=== PATIENT | male | born 1990 | race Two or more races ===

== ENCOUNTER 2023-04-26 22:13 | Emergency (ER) | payer OTHER ==
--- NOTE | 2023-04-26 22:45 | ED ---
General Adult HPI - General Source: patient, RN notes reviewed <Raissa Lazcano - Last Filed: 04/26/23 22:39> <Gustavo Grace - Last Filed: 04/27/23 20:02> - General Stated complaint: Hypertension Time Seen by Provider: 04/26/23 22:42 - History of Present Illness Initial comments: 32-year-old male presents to the emergency department for evaluation of hypertension. Patient states that he recently stopped drinking. Last drink was around 24 hours ago. Patient states that he has been drinking about a pint to a fifth of tequila daily for around 2 months. He went into his primary care provider for help today and he was sent to the emergency department. Denies history of DTs, withdrawal seizures. (Raissa Lazcano) 32-year-old male presenting with chief complaint of alcohol withdrawal. Patient normally drinks between a pint and a fifth of liquor per day. His last drink was 24 hours ago. He went to urgent care today and was noted to have hypertension, he was sent to the emergency department. He admits to "shakiness". Denies chest pain, difficulty breathing, abdominal pain and hallucinations, . No history of withdrawal seizures. (Gustavo Grace) - Related Data Previous Rx's Medication Instructions Recorded LORazepam [Ativan] 1 mg PO TID 3 Days #9 tab 04/27/23 Allergies Allergy/AdvReac Type Severity Reaction Status Date / Time No Known Allergies Allergy Verified 04/26/23 23:07 Review of Systems ROS Other: All systems not noted in ROS Statement are negative. <Raissa Lazcano - Last Filed: 04/26/23 22:39> ROS Other: All systems not noted in ROS Statement are negative. <Gustavo Grace - Last Filed: 04/27/23 20:02> ROS Statement: Those systems with pertinent positive or pertinent negative responses have been documented in the HPI. General Exam <Raissa Lazcano - Last Filed: 04/26/23 22:39> Limitations: no limitations General appearance: alert, in no apparent distress Head exam: Present: atraumatic, normocephalic Eye exam: Present: normal appearance Neck exam: Present: normal inspection Respiratory exam: Present: normal lung sounds bilaterally. Absent: respiratory distress, wheezes, rales, rhonchi, stridor Cardiovascular Exam: Present: normal rhythm, tachycardia, normal heart sounds. Absent: systolic murmur, diastolic murmur, rubs, gallop, clicks Neurological exam: Present: alert, oriented X3 Psychiatric exam: Present: normal affect, normal mood Skin exam: Present: warm, dry <Gustavo Grace - Last Filed: 04/27/23 20:02> - General Exam Comments Initial Comments: Visual Physical Exam Vital signs reviewed General: Well-appearing, nontoxic, no acute distress. Head: Normocephalic, atraumatic Eyes: PERRLA, EOMI ENT: Airway patent Chest: Nonlabored breathing Skin: No visual rash, normal skin tone Neuro: Alert and oriented 3 Musculoskeletal: No gross abnormalities (Raissa Lazcano) Course Vital Signs 04/26/23 04/27/23 04/27/23 23:08 00:11 01:17 Temperature 99.2 F Pulse Rate 128 H 85 93 Respiratory 18 20 20 Rate Blood Pressure 160/107 137/91 145/103 O2 Sat by Pulse 98 97 97 Oximetry 04/27/23 04/27/23 04:00 05:14 Temperature 98.2 F Pulse Rate 88 82 Respiratory 18 16 Rate Blood Pressure 122/73 116/74 O2 Sat by Pulse 98 98 Oximetry Medical Decision Making <Raissa Lazcano - Last Filed: 04/26/23 22:39> - Lab Data Result diagrams: 04/26/23 23:52 04/26/23 23:52 <Gustavo Grace - Last Filed: 04/27/23 20:02> - Medical Decision Making Quick note preformed by Raissa Lazcano PA-C (Raissa Lazcano) Was pt. sent in by a medical professional or institution ([facility], SHIPPING ASSISTANT, urgent care, hospital, or usp...) When possible be specific @ -Sent by urgent care Did you speak to anyone other than the patient for history (EMS, parent, family, police, friend...)? What history was obtained from this source @ -No Did you review nursing and triage notes (agree or disagree)? Why? @ -I reviewed and agree with nursing and triage notes Were old charts reviewed (outside hosp., previous admission, EMS record, old EKG, old radiological studies, urgent care reports/EKG's, usp records)? Report findings @ -No old charts were reviewed Differential Diagnosis (chest pain, altered mental status, abdominal pain women, abdominal pain men, vaginal bleeding, weakness, fever, dyspnea, syncope, headache, dizziness, GI bleed, back pain, seizure, CVA, palpatations, mental health, musculoskeletal)? @ -Differential includes alcohol withdrawal, hypertensive emergency, electrolyte abnormality, this is not all-inclusive list EKG interpreted by me (3pts min.). @ -Sinus rhythm ventricular rate 84. [place] interval 170. QRS 107. QT 346. QTc 387 X-rays interpreted by me (1pt min.). @ -None done CT interpreted by me (1pt min.). @ -None done U/S interpreted by me (1pt. min.). @ -None done What testing was considered but not performed or refused? (CT, X-rays, U/S, labs)? Why? @ -None What meds were considered but not given or refused? Why? @ -None Did you discuss the management of the patient with other professionals (professionals i.e. , PA, SHIPPING ASSISTANT, lab, RT, psych nurse, executive secretary social welfare, power plant operator apprentice, teacher, president and chief commercial officer, registered nurse hh case manager)? Give summary @ -No Was smoking cessation discussed for >3mins.? @ -No Was critical care preformed (if so, how long)? @ -No Were there social determinants of health that impacted care today? How? (Homelessness, low income, unemployed, alcoholism, drug addiction, transportation, low edu. Level, literacy, decrease access to med. care, nursing home, rehab)? @ -Alcoholism Was there de-escalation of care discussed even if they declined (Discuss DNR or withdrawal of care, Hospice)? DNR status @ -No What co-morbidities impacted this encounter? (DM, HTN, Smoking, COPD, CAD, Cancer, CVA, ARF, Chemo, Hep., AIDS, mental health diagnosis, sleep apnea, morbid obesity)? @ -None Was patient admitted / discharged? Hospital course, mention meds given and route, prescriptions, significant lab abnormalities, going to OR and other pertinent info. @ -32-year-old male presented with chief complaint of alcohol withdrawal. He was noted to have high blood pressure urgent care and was sent to the ER. His last drink was 24 hours ago. History and physical exam were conducted. Patient is given 2 g Ativan and normal saline fluid bolus. CIWA score is 1. Lab work shows no leukocytosis or anemia. Patient appears dehydrated with sodium 135 creatinine 1.32. Bilirubin 2 AST 104 ALT 94, consistent with alcoholism. EKG shows sinus rhythm. Vital signs have returned to normal limits. Patient will be discharged home with Ativan. Educated on return parameters. Follow-up with PCP. Report back to ER with any new or worsening symptoms. Discussed return parameters and answered all questions. Patient conveyed verbal understanding and agreed to the plan. I discussed this case in detail with my attending Dr. Varma Undiagnosed new problem with uncertain prognosis? @ -No Drug Therapy requiring intensive monitoring for toxicity (Heparin, Nitro, Insulin, Cardizem)? @ -No Were any procedures done? @ -No Diagnosis/symptom? @ -Alcohol withdrawal Acute, or Chronic, or Acute on Chronic? @ -Acute Uncomplicated (without systemic symptoms) or Complicated (systemic symptoms)? @ -Complicated Side effects of treatment? @ -No Exacerbation, Progression, or Severe Exacerbation? @ -No Poses a threat to life or bodily function? How? (Chest pain, USA, ME, pneumonia, PE, COPD, DKA, ARF, appy, cholecystitis, CVA, Diverticulitis, Homicidal, Suicidal, threat to staff... and all critical care pts) @ -Low likelihood (Gustavo Grace) - Lab Data Lab Results 04/26/23 04/26/23 04/26/23 Range/Units 23:52 23:52 23:52 WBC 8.2 (3.8-10.6) k/uL RBC 4.08 L (4.30-5.90) m/uL Hgb 14.3 (13.0-17.5) gm/dL Hct 40.3 (39.0-53.0) % MCV 98.7 (80.0-100.0) fL MCH 35.0 (25.0-35.0) pg MCHC 35.4 (31.0-37.0) g/dL RDW 12.7 (11.5-15.5) % Plt Count 235 (150-450) k/uL MPV 7.2 Neutrophils % 69 % Lymphocytes % 24 % Monocytes % 4 % Eosinophils % 1 % Basophils % 1 % Neutrophils # 5.7 (1.3-7.7) k/uL Lymphocytes # 2.0 (1.0-4.8) k/uL Monocytes # 0.3 (0-1.0) k/uL Eosinophils # 0.1 (0-0.7) k/uL Basophils # 0.1 (0-0.2) k/uL PT 11.1 (10.0-12.5) sec INR 1.0 (<1.2) APTT 25.7 (22.0-30.0) sec Sodium 135 L (137-145) mmol/L Potassium 3.5 (3.5-5.1) mmol/L Chloride 100 (98-107) mmol/L Carbon Dioxide 18 L (22-30) mmol/L Anion Gap 17 mmol/L BUN 11 (9-20) mg/dL Creatinine 1.32 H (0.66-1.25) mg/dL Est GFR (CKD-EPI)AfAm 82 (>60 ml/min/1.73 sqM) Est GFR (CKD-EPI)NonAf 71 (>60 ml/min/1.73 sqM) Glucose 133 H (74-99) mg/dL Calcium 9.7 (8.4-10.2) mg/dL Total Bilirubin 2.0 H (0.2-1.3) mg/dL AST 104 H (17-59) U/L ALT 94 H (4-49) U/L Alkaline Phosphatase 80 (38-126) U/L Total Protein 7.8 (6.3-8.2) g/dL Albumin 4.2 (3.5-5.0) g/dL Disposition <Raissa Lazcano - Last Filed: 04/26/23 22:39> Is patient prescribed a controlled substance at d/c from ED?: Yes When asked, does pt state using other controlled substances?: No If prescribed controlled substance>3 days was MAPS reviewed?: Prescribed <3 Days Time of Disposition: 04:50 <Gustavo Grace - Last Filed: 04/27/23 20:02> Clinical Impression: Alcohol withdrawal Disposition: HOME SELF-CARE Condition: Fair Instructions (If sedation given, give patient instructions): Alcohol Withdrawal (ED) Additional Instructions: Follow-up with PCP. Report back to ER with any new or worsening symptoms. Take medication as prescribed. Prescriptions: LORazepam [Ativan] 1 mg PO TID 3 Days #9 tab Referrals: None,Stated [Primary Care Provider] - 1-2 days Vahe Felder MD [STAFF PHYSICIAN] - 1-2 days Baldev Awan MD [STAFF PHYSICIAN] - 1-2 days
[2023-04-26] MEDS ORDERED: SODIUM CHLORIDE 0.9% 1,000 ML IV ONE (23:33)
[2023-04-26] MEDS ORDERED: LORazepam 2 MG/ML INJ IV PRN ×3 (23:33)
[2023-04-26] MEDS ORDERED: LORazepam 2 MG/ML INJ IV STA (23:33)
[2023-04-26] MEDS ORDERED: THIAMINE 100 MG/ML 2 ML VIAL IM STA (23:33)
[2023-04-27 00:11] LABS: Basophils # (A) 0.1 k/uL (0-0.2); Basophils % (A) 1 %; Eosinophils # (A) 0.1 k/uL (0-0.7); Eosinophils % (A) 1 %; HCT 40.3 % (39.0-53.0); HGB 14.3 gm/dL (13.0-17.5); Lymphocytes % (A) 24 %; MCHC 35.4 g/dL (31.0-37.0); MCV 98.7 fL (80.0-100.0); Mean Platelet Volume 7.2; Monocytes # (A) 0.3 k/uL (0-1.0); Monocytes % (A) 4 %; Neutrophils # (A) 5.7 k/uL (1.3-7.7); Neutrophils % (A) 69 %; Platelet Count 235 k/uL (150-450); RBC 4.08 m/uL (4.30-5.90); RDW 12.7 % (11.5-15.5); WBC 8.2 k/uL (3.8-10.6)
[2023-04-27 00:22] LABS: Partial Thromboplastin Time 25.7 sec (22.0-30.0); Prothrombin Time 11.1 sec (10.0-12.5)
[2023-04-27 01:26] LABS: ALT 94 U/L (4-49); AST 104 U/L (17-59); African American GFR (CKD) 82 (>60 ml/min/1.73 sqM); Albumin 4.2 g/dL (3.5-5.0); Alkaline Phosphatase 80 U/L (38-126); Anion Gap 17 mmol/L; Blood Urea Nitrogen 11 mg/dL (9-20); Calcium 9.7 mg/dL (8.4-10.2); Carbon Dioxide 18 mmol/L (22-30); Chloride 100 mmol/L (98-107); Glucose 133 mg/dL (74-99); Non-African American GFR(CKD) 71 (>60 ml/min/1.73 sqM); Potassium 3.5 mmol/L (3.5-5.1); Sodium 135 mmol/L (137-145); Total Protein 7.8 g/dL (6.3-8.2)
[2023-04-27] MEDS ORDERED: SODIUM CHLORIDE 0.9% 1,000 ML IV ONE (03:03)
[2023-04-27 05:17] VITALS: BP 116/74; PULSE 82; RESP 16; TEMP 98.2
[2023-04-27] MEDS ORDERED: THIAMINE 100 MG TAB PO SCH (09:00)
== END 2023-04-27 05:14 | disposition home or self-care (01) ==
LOC: EC 22:13
DX: F10.239 Alcohol dependence with withdrawal, unspecified (principal); I10 Essential (primary) hypertension
CPT/HCPCS: 36415; 93005; 80053; 85025; 85610; 85730; 99284; 96374; 96372; 96361 ×4; J2060; J3411